=== PATIENT | female | born 1980 | race Caucasian/White ===

== ENCOUNTER 2022-04-10 04:33 | Day surgery (SDC) | payer BC ==
[2022-04-09 11:00] VITALS: BMI 26.8
[2022-04-10] MEDS ORDERED: oxyCODONE HCL 5 MG TABLET PO PRN ×2 (08:27→10:19)
[2022-04-10] MEDS ORDERED: ONDANSETRON 4 MG/2 ML VIAL IVPUSH PRN ×2 (08:27→10:19)
[2022-04-10] MEDS ORDERED: LACTATED RINGERS SOLUTION 1,000 ML IV SCH (08:30)
[2022-04-10] MEDS ORDERED: MIDAZOLAM HCL 2 MG/2 ML SINGLE DOSE VIAL ONE (08:52)
[2022-04-10] MEDS ORDERED: PROPOFOL 20 ML ONE (09:23)
[2022-04-10] MEDS ORDERED: ONDANSETRON 4 MG/2 ML VIAL ONE (09:23)
[2022-04-10] MEDS ORDERED: DEXAMETHASONE SOD PHOSPHATE 4 MG/1 ML VIAL ONE (09:23)
[2022-04-10] MEDS ORDERED: SEVOFLURANE 250 ML BTL ONE (09:33)
[2022-04-10] MEDS ORDERED: IBUPROFEN 600 MG TABLET (FP) PO PRN (10:19)
[2022-04-10] MEDS ORDERED: IBUPROFEN 800 MG/8 ML IJ IVPB PRN (10:19)
[2022-04-10] MEDS ORDERED: ELECTROLYTE-148 SOLN 1,000 ML IV SCH (10:30)
[2022-04-10 11:33] VITALS: RESP 20
[2022-04-10] MEDS ORDERED: oxyCODONE HCL 5 MG TABLET ONE (11:43)
[2022-04-10 11:53] VITALS: TEMP 97.2
[2022-04-10 11:54] VITALS: BP 115/78; PULSE 70
== END 2022-04-10 12:05 | disposition home or self-care (01) ==
LOC: JASU-SURG 04:33
PROVIDERS: ATTEND Obstetrics & Gynecology
PROC: 0UB98ZX Excision of Uterus, Via Natural or Artificial Opening Endoscopic, Diagnostic (ICD-10-PCS; 2022-04-10)
PROC: 0UDB7ZX Extraction of Endometrium, Via Natural or Artificial Opening, Diagnostic (ICD-10-PCS; 2022-04-10)
PROC: 0UB98ZZ Excision of Uterus, Via Natural or Artificial Opening Endoscopic (ICD-10-PCS; principal; 2022-04-10 09:00)
DX: N92.1 Excessive and frequent menstruation with irregular cycle (principal); N80.03 Adenomyosis of the uterus; N84.0 Polyp of corpus uteri; D25.0 Submucous leiomyoma of uterus
CPT/HCPCS: 81025; 88305-TC; 94760